=== PATIENT | male | born 1975 | race Caucasian/White ===

== ENCOUNTER 2018-09-03 12:39 | Emergency (ER) | payer BC ==
[2018-09-03 12:55] VITALS: BP 134/87
--- NOTE | 2018-09-03 13:12 | UC ---
Eye Complaint HPI - HPI Summary HPI Summary: Patient is 43 year old gentleman left , who present today to the urgent care with possible foreign body in eye for past 2 days. 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 He tried to irrigate the eye and clean it several times but continues to have foreign body sensation, irritation and increased lacrimation. . Denies visual problem. Also c/o difficulty swallowing for one year. At times food gets stuck , is not interested and getting looked at it at this time Denies any fever, chills, cough chest pain or shortness of breath . Denies any abdominal pain , nausea or vomiting , diarrhea or constipation. - History of Current Complaint Chief Complaint: UCEye Stated Complaint: EYE INJURY Time Seen by Provider: 09/03/18 12:52 Hx Obtained From: Patient Pain Intensity: 2 - Allergies/Home Medications Allergies/Adverse Reactions: Allergies Allergy/AdvReac Type Severity Reaction Status Date / Time Penicillins Allergy Unknown Verified 09/03/18 12:56 Reaction Details PMH/Surg Hx/FS Hx/Imm Hx - Additional Past Medical History Additional PMH: No significant past medical history Previously Healthy: Yes - Surgical History Surgical History: None - Social History Alcohol Use: Occasionally Substance Use Type: None Smoking Status (MU): Never Smoked Tobacco Review of Systems All Other Systems Reviewed And Are Negative: Yes Constitutional: Positive: Negative Skin: Positive: Negative Eyes: Positive: Drainage - Increased lacrimation, Other - Foreign body sensation ENT: Positive: Negative Respiratory: Positive: Negative Cardiovascular: Positive: Negative Gastrointestinal: Positive: Other - Difficulty swallowing Genitourinary: Positive: Negative Motor: Positive: Negative Neurovascular: Positive: Negative Musculoskeletal: Positive: Negative Neurological: Positive: Negative Psychological: Positive: Negative Is Patient Immunocompromised?: No Physical Exam - Summary Physical Exam Summary: Physical Exam: Const: Appears well. No signs of apparent distress present. Alert and oriented x 3. Musculo: Walks with a normal gait. Head/Face: Atraumatic, normocephalic on inspection. Eyes: EOMI and PERRLA in both eyes. Conjunctivae clear. No discharge noted. a small central corneal translucent foreign body is seen Upon fluorescein staining, there is a corneal abrasion at 4 to 6 o'clock position along with a central corneal foreign body. ENT: Hearing normal Respiratory: Respirations are unlabored. Lungs clear to auscultation bilaterally, no wheezing , rhonchi or rales noted . CVS: Regular rate and Rhythm, S1S2 normal , no murmurs identified. Extremities: Peripheral circulation is grossly normal. Pulses 2+ Abdomen : Soft non tender , nondistended , Bowel sounds present . No guarding , rebound tenderness or rigidity noted. Skin: No lesions or rash located on the upper extremities or on the lower extremities. Neuro: Cranial nerves II to XII intact, motor and sensory intact. DTR Intact bilaterally. Mood is normal. Affect is normal. Triage Information Reviewed: Yes Vital Signs: Initial Vital Signs Temp 97.5 F 09/03/18 12:50 Pulse 83 09/03/18 12:50 Resp 18 09/03/18 12:50 BP 134/87 09/03/18 12:50 Pulse Ox 100 09/03/18 12:50 Vital Signs Reviewed: Yes Procedures - Eye Procedure Left Alcaine Drops Administered: No - tetracaine 0.5% used for local anesthesia Eye FB Removal: removal w/ needle - translucent corneal foreign body Eye Irrigated w/ Saline (ccs): 1 - 10 cc saline Eye Complaint Course/Dx - Course Course Of Treatment: During the visit today, left eye was examined after local anesthesia with tetracaine 0.5% and fluorescent staining which showed foreign body in a corneal abrasion. Foreign body was removed . We discussed the findings and further plan to follow with ophthalmology in 2-3 days. Ciprofloxacin eyedrops were E prescribed to the pharmacy Patient expressed understanding . - Differential Dx/Diagnosis Provider Diagnosis: Corneal foreign body, Corneal abrasion Discharge - Sign-Out/Discharge Documenting (check all that apply): Patient Departure All imaging exams completed and their final reports reviewed: No Studies - Discharge Plan Condition: Stable Disposition: HOME Prescriptions: Ciprofloxacin 0.3% OPTH.MEHRAN* [Cipro 0.3% Opth*] 1 drop LEFT EYE Q6H 5 Days #1 btl Patient Education Materials: Corneal Abrasion (ED), Eye Foreign Body (ED) Referrals: Shelton Worthy MD [Medical Doctor] - 3 Days No Primary Care Phys,NOPCP [Primary Care Provider] - Additional Instructions: Please start using the eye drops as prescribed to the pharmacy . Follow up with ophthalmology in 2 to 3 days Patients blood pressure slightly high in Urgent care today (prehypertensive range) , plan follow up with PCP for better control Return to Urgent care / ER if symptoms get worse. - Billing Disposition and Condition Condition: STABLE Disposition: Home
[2018-09-03] MEDS ORDERED: Tetracaine 0.5% OPTH.SOL 4 ML* 1 DROP BTL LEFT EYE ONE (13:20)
[2018-09-03] MEDS ORDERED: Fluorescein Sodium TOPICAL* 1 MG TEST STRIP OPHTHALMIC ONE (13:21)
== END 2018-09-03 14:10 | disposition home or self-care (01) ==
LOC: UCEAST 12:39
DX: T15.02XA Foreign body in cornea, left eye, initial encounter (principal); Z88.0 Allergy status to penicillin; X58.XXXA Exposure to other specified factors, initial encounter; Y92.9 Unspecified place or not applicable
CPT/HCPCS: 65220; 99203; A9270-GY; G0463

== ENCOUNTER 2018-09-05 20:36 | Emergency (ER) | payer BC, OTHER ==
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
[2018-09-05] MEDS ORDERED: Tetracaine 0.5% OPTH.SOL 4 ML* 1 DROP BTL LEFT EYE ONE (20:46)
[2018-09-05] MEDS ORDERED: Fluorescein Sodium TOPICAL* 1 MG TEST STRIP OPHTHALMIC ONE (20:46)
[2018-09-05 20:54] VITALS: BP 121/87
== END 2018-09-05 21:10 | disposition home or self-care (01) ==
LOC: UCEAST 20:36
DX: S05.02XA Injury of conjunctiva and corneal abrasion without foreign body, left eye, initial encounter (principal); Z88.0 Allergy status to penicillin; Y92.009 Unspecified place in unspecified non-institutional (private) residence as the place of occurrence of the external cause; Y04.0XXA Assault by unarmed brawl or fight, initial encounter
CPT/HCPCS: 99212; A9270-GY; G0463